=== PATIENT | male | born 1935 | race Hispanic/Latino ===

== ENCOUNTER 2019-01-05 01:42 | Inpatient (IN) | payer MEDICARE ==
[2019-01-05] MEDS ORDERED: ATROVENT IH ONE (02:02)
[2019-01-05] MEDS ORDERED: ZITHROMAX 500 MG in NACL 0.9% 250ML 250 ML IV ONE (02:02)
[2019-01-05] MEDS ORDERED: SOLU-Medrol IV ONE (02:02)
[2019-01-05] MEDS ORDERED: PROVENTIL IH ONE (02:02)
[2019-01-05] MEDS ORDERED: ROCEPHIN/NS 1 GM/50 ML 1 GM/50 ML BAG IV ONE (02:04)
--- NOTE | 2019-01-05 02:11 | Emergency Department Report ---
ED Shortness of Breath HPI - General Chief Complaint: Dyspnea/Respdistress Stated Complaint: DENNYS Time Seen by Provider: 01/05/19 01:52 Source: EMS Mode of arrival: Stretcher Limitations: No Limitations - History of Present Illness Initial Comments: Mr. Iraheta is an 83-year-old male with history of COPD dependent on 3 L of oxygen, pneumonia, heart valve replacement on Eliquis, hypertension, who presents with severe shortness of breath over the last 2 nights. He is unable to lay flat. No history of congestive heart failure. He has nonproductive cou gh. However he feels congested in his chest. Last hospitalization was 1-2 years ago. He's had lower back pain. he's had have mild left lower quadrant abdominal pain. When EMS arrived, his oxygen saturation on room air was 80%. He requires continuous 24-hour oxygen supplementation. PCP Dr. Fischer [facility] primary care Cryptologic Linguist Dr. Herman [facility] He is also followed by esthetician/spa coordinator in the [facility]. MD Complaint: shortness of breath -: Gradual, days(s) (2) Severity: severe Consistency: constant Improves With: oxygen Worsens With: lying flat Known History Of: COPD Associated Symptoms: cough, abdominal pain - Related Data Home Medications Medication Instructions Recorded Confirmed Last Taken Aspirin EC [Aspirin Enteric Coated 81 mg PO QDAY 02/28/14 03/01/14 02/28/14 09:00 TAB] Labetalol [Normodyne TAB] 300 mg PO BID 02/28/14 03/01/14 02/28/14 09:00 Tamsulosin [Flomax] 0.4 mg PO HS 02/28/14 03/01/14 02/28/14 22:44 0800 Valsartan [Diovan] 80 mg DAILY 02/28/14 03/01/14 02/28/14 09:00 Ergocalciferol (Vitamin D2) 2,000 unit PO QDAY 03/01/14 03/01/14 03/01/14 09:00 [Vitamin D2] Previous Rx's Medication Instructions Recorded Last Taken Type Levalbuterol Tartrate [Xopenex Hfa] 2 puff IH Q6HR PRN #1 hfa.aer.ad 03/03/14 Unknown Rx levoFLOXacin [Levaquin] 750 mg PO QDAY #7 tablet 03/03/14 Unknown Rx predniSONE [Deltasone] 10 mg PO QDAY #5 tab 03/03/14 Unknown Rx Allergies Allergy/AdvReac Type Severity Reaction Status Date / Time No Known Allergies Allergy Verified 01/05/19 03:03 ED Review of Systems ROS: Stated complaint: DENNYS Other details as noted in HPI Comment: All other systems reviewed and negative Constitutional: malaise. denies: fever Respiratory: cough, shortness of breath Cardiovascular: denies: chest pain ED Past Medical Hx - Past Medical History Previous Medical History?: Yes Hx Hypertension: Yes Hx COPD: Yes Hx HIV: No Additional medical history: GI bleed on coumadin - Surgical History Past Surgical History?: Yes Additional Surgical History: valve replacement - Social History Smoking Status: Former Smoker - Medications Home Medications: Home Medications Medication Instructions Recorded Confirmed Last Taken Type Aspirin EC [Aspirin Enteric Coated 81 mg PO QDAY 02/28/14 03/01/14 02/28/14 09:00 History TAB] Labetalol [Normodyne TAB] 300 mg PO BID 02/28/14 03/01/14 02/28/14 09:00 History Tamsulosin [Flomax] 0.4 mg PO HS 02/28/14 03/01/14 02/28/14 22:44 History 0800 Valsartan [Diovan] 80 mg DAILY 02/28/14 03/01/14 02/28/14 09:00 History Ergocalciferol (Vitamin D2) 2,000 unit PO QDAY 03/01/14 03/01/14 03/01/14 09:00 History [Vitamin D2] Levalbuterol Tartrate [Xopenex Hfa] 2 puff IH Q6HR PRN #1 hfa.aer.ad 03/03/14 Unknown Rx levoFLOXacin [Levaquin] 750 mg PO QDAY #7 tablet 03/03/14 Unknown Rx predniSONE [Deltasone] 10 mg PO QDAY #5 tab 03/03/14 Unknown Rx ED Physical Exam - General Limitations: No Limitations General appearance: alert, in distress, other (speaking full word sentences with much effort, accessory muscle use evident, wet cough) - Head Head exam: Present: atraumatic, normocephalic - Eye Eye exam: Present: normal appearance - ENT ENT exam: Present: mucous membranes moist - Neck Neck exam: Present: normal inspection - Respiratory Respiratory exam: Present: respiratory distress, rales, accessory muscle use, decreased breath sounds, prolonged expiratory - Cardiovascular Cardiovascular Exam: Present: regular rate, normal rhythm, normal heart sounds. Absent: systolic murmur, diastolic murmur, rubs, gallop - GI/Abdominal GI/Abdominal exam: Present: soft, normal bowel sounds, other (abdominal retractions). Absent: distended, tenderness, guarding, rebound - Rectal Rectal exam: Present: deferred - Extremities Exam Extremities exam: Absent: tenderness - Back Exam Back exam: Present: normal inspection - Neurological Exam Neurological exam: Present: alert, oriented X3 - Psychiatric Psychiatric exam: Present: normal affect, normal mood - Skin Skin exam: Present: warm, dry, intact, normal color. Absent: rash ED Course Vital Signs 01/05/19 01/05/19 01/05/19 02:08 02:11 02:18 Temperature 97.8 F 97.8 F Pulse Rate 96 H 96 H Respiratory 24 24 24 Rate Blood Pressure 176/60 Blood Pressure 176/60 [Right] O2 Sat by Pulse 92 94 92 Oximetry 01/05/19 03:00 Temperature Pulse Rate 90 Respiratory 24 Rate Blood Pressure Blood Pressure 156/60 [Right] O2 Sat by Pulse 95 Oximetry ED Medical Decision Making - Lab Data Result diagrams: 01/05/19 02:21 01/05/19 02:21 - Radiology Data Radiology results: image reviewed interpreted by me: Portable chest x-ray one view: Hyperinflated lungs lung scarring no infiltrate atelectasis - Medical Decision Making Mr. Iraheta presents with acute COPD exacerbation. Symptoms improving with nebulizer therapy, IV antibiotics, IV steroids. Admitted to telemetry in fair condition. Critical Care Time: Yes Critical care time in (mins) excluding proc time.: 40 Critical care attestation.: If time is entered above; I have spent that time in minutes in the direct care of this critically ill patient, excluding procedure time. 40 minutes of critical care time excluding procedures were used in the care of the patient. Patient required multiple assessments and interventions. I reviewed the electronic medical record. I spoke with consultants involved in the care of the patient. ED Disposition Clinical Impression: Acute exacerbation of chronic obstructive pulmonary disease (COPD) Disposition: OP ADMIT IP TO THIS HOSP Is pt being admited?: Yes Does the pt Need Aspirin: No Condition: Stable
[2019-01-05 02:39] LABS: Basophils % (Auto) 0.3 % (0.0-1.8); Eosinophils # (Auto) 0.1 K/mm3 (0.0-0.4); Eosinophils % (Auto) 0.9 % (0.0-4.3); Hematocrit 39.1 % (35.5-45.6); Lymphocytes # (Auto) 0.6 K/mm3 (1.2-5.4); Mean Corpuscular HGB Conc 33 % (32-34); Mean Corpuscular Volume 91 fl (84-94); Monocytes # (Auto) 0.6 K/mm3 (0.0-0.8); Monocytes % (Auto) 7.8 % (0.0-7.3); Platelet Count 150 K/mm3 (140-440); Red Blood Count 4.31 M/mm3 (3.65-5.03); Red Cell Distribution Width 14.9 % (13.2-15.2)
[2019-01-05 03:03] LABS: Alanine Aminotransferase 14 units/L (7-56); Albumin 3.7 g/dL (3.9-5); BUN/Creatinine Ratio 21; Blood Urea Nitrogen 15 mg/dL (9-20); Hemolysis Index 4
--- NOTE | 2019-01-05 05:16 | XRay Report ---
PROCEDURE: XR CHEST 1V AP TECHNIQUE: A portable upright view of the chest was submitted. HISTORY: Dyspnea COMPARISONS: None FINDINGS: There are sternotomy sutures. The heart is mildly enlarged. There is tortuosity of the thoracic cord. The lungs are not overtly congested. There are interstitial changes in the right lung. Whether this is on a chronic basis or secondary to acute infiltrate is uncertain. Pleural fluid is not seen. The l eft lung is clear. The skeletal structures reveal generalized osteoporosis. 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 Interstitial changes throughout the right lung as described. Whether this is on a chronic basis or se condary to acute infiltrates is uncertain.. This document is electronically signed by Jamal Lebron MD., January 05 2019 05:14:33 AM ET
--- NOTE | 2019-01-05 08:29 | History and Physical Report ---
History of Present Illness Date of examination: 01/05/19 Date of admission: 01/05/19 04:28 Chief complaint: SOB since last night - "I could not sleep" History of present illness: Mr. Iraheta is an 83-year-old male with history of COPD dependent on 3 L of oxygen, heart valve replacement, paroxysmal atrial fib on Eliquis, hypertension, who presents with severe shortness of breath from last night. He states that he is unable to lay flat and denies any leg swelling and any history of congestive heart failure. He has nonproductive cough. However he feels congested in his chest. Last hospitalization was 1-2 years ago. When EMS arrived, his oxygen saturation on room air was 80%. He follows up with Dr. Herman at [facility]. His CXR showed right sided chronic changes. He is getting admitted for further evaluation and management. he denies any chest pain. He states that he passed out while doing BM on and regained consciousness very quickly aft erwards and did not hit his head that time.+ Review of System: Constitutional: no fever, no chills, no weight loss Ears, eyes, nose, mouth and throat: no nasal congestion, no nasal discharge, no sinus pressure, no vision change, no red eye. Neck: No neck pain or rigidity. Cardiovascular: No chest pain, no orthopnea, no palpitations, no leg swelling Respiratory: + shortness of breath, + cough, no congestion, no wheezing Gastrointestinal: no abdominal pain, no nausea, no vomiting Genitourinary : no dysuria, no hematuria Musculoskeletal: no joint swelling or muscle ache Integumentary: no rash, no pruritis Neurological: no parathesias, no numbness, no tingling, one syncopal episode last week w/o any head trauma Endocrine: no cold or heat intolerance, no polyuria or polydipsia Hematologic/Lymphatic: no easy bruising, no easy bleeding, no gland swelling Allergic/Immunologic: no urticaria, no angioedema. Past History Past Medical History: atrial fib, COPD, hypertension, hyperlipidemia, other (VHD) Past Surgical History: Other (aortic valve replacement) Social history: , lives with family, smoking (now quit several years ago) Family history: hypertension Medications and Allergies Allergies Allergy/AdvReac Type Severity Reaction Status Date / Time No Known Allergies Allergy Verified 01/05/19 03:03 Home Medications Medication Instructions Recorded Confirmed Last Taken Type Aspirin EC [Aspirin Enteric Coated 81 mg PO QDAY 02/28/14 01/05/19 02/28/14 09:00 History TAB] Labetalol [Normodyne TAB] 300 mg PO BID 02/28/14 01/05/19 02/28/14 09:00 History Tamsulosin [Flomax] 0.4 mg PO HS 02/28/14 01/05/19 01/04/19 22:00 History Valsartan [Diovan] 80 mg DAILY 02/28/14 01/05/19 02/28/14 09:00 History Ergocalciferol (Vitamin D2) 2,000 unit PO QDAY 03/01/14 01/05/19 03/01/14 09:00 History [Vitamin D2] Levalbuterol Tartrate [Xopenex Hfa] 2 puff IH Q6HR PRN #1 hfa.aer.ad 03/03/14 01/05/19 01/04/19 Rx levoFLOXacin [Levaquin] 750 mg PO QDAY #7 tablet 03/03/14 01/05/19 Unknown Rx predniSONE [Deltasone] 10 mg PO QDAY #5 tab 03/03/14 01/05/19 Unknown Rx Apixaban [Eliquis] 2.5 mg PO BID 01/05/19 01/05/19 01/04/19 22:00 History Digoxin [Digox] 125 mcg PO DAILY 01/05/19 01/05/19 01/04/19 10:00 History Exam - Physical Exam Narrative exam: GENERAL: well-developed and well-nourished WM lying on bed appeared to be in mildo discomfort. HEENT: Normocephalic. Atraumatic. No conjunctival congestion or icterus. Patient has moist mucous membranes. NECK: Supple. Trachea midline. CHEST/LUNGS: diminiahed auscultated bilaterally, breathing nonlabored. No wheezes, + b/l rhonchi. HEART/CARDIOVASCULAR: Regular in rate and rhythm. S1 and S2 positive. ABDOMEN: Abdomen is soft, nontender. Patient has normal bowel sounds. SKIN: There is no rash. Warm and dry. NEURO: No focal motor deficit. Follows command. MUSCULOSKELETAL: No joint effusion or tenderness. EXTRIMITY: No edema, no cyanosis or clubbing. PSYCH: Cooperative. - Constitutional Vitals: Temp Pulse Resp BP Pulse Ox 97.8 F 97 H 19 146/54 91 01/05/19 06:00 01/05/19 06:00 01/05/19 06:00 01/05/19 06:00 01/05/19 06:00 Results - Labs CBC & Chem 7: 01/05/19 02:21 01/06/19 04:48 Labs: Abnormal lab results 01/05/19 01/05/19 Range/Units 02:21 02:21 Lymph % (Auto) 8.0 L (13.4-35.0) % Harvey % (Auto) 7.8 H (0.0-7.3) % Lymph # 0.6 L (1.2-5.4) K/mm3 Seg Neutrophils % 83.0 H (40.0-70.0) % Sodium 147 H (137-145) mmol/L Creatinine 0.7 L (0.8-1.5) mg/dL Glucose 121 H (75-100) mg/dL Albumin 3.7 L (3.9-5) g/dL Assessment and Plan Acute on chronic respiratory failure - due to COPD exacerbation Acute COPD exacerbation Paroxysmal atrial fib s/p heart valve replacement h/o thoracic AA HTN, stable s/p fall vs syncope, no h/o head trauma - - We'll admit the patient to telemetry - Will provide scheduled nebulizer breathing treatment and as needed - Place on empiric steroid and antibiotic - will get sputum culture, chest x-ray showed Interstitial changes throughout the right lung - possibly chronic, no fever, no elevated white count, will mon itor - Provide supplemental oxygen to keep oxygen saturation above 92% - Consider to consult pulmonary if no improvement in next 24 hours - We'll place on sliding scale of insulin as patient will be on empiric steroid - We will resume home medications, monitor BP - will do cardiology consult for h/o syncope and his cardiac history - Provide DVT prophylaxis with Eliquis. 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 Interstitial changes throughout the right lung as described. Whether this is on a chronic basis or secondary to acute infiltrates is uncertain..
[2019-01-05] MEDS ORDERED: LEVALBUTEROL TARTRATE IH PRN (11:14)
[2019-01-05] MEDS ORDERED: NON-FORMULARY (Valsartan [Diovan] 80 MG) PO SCH (11:15)
[2019-01-05] MEDS ORDERED: PROVENTIL IH PRN (11:35)
[2019-01-05] MEDS ORDERED: LEVAQUIN PO SCH (12:00)
[2019-01-05] MEDS ORDERED: SOLU-Medrol IV SCH (12:00)
[2019-01-05] MEDS: LANOXIN PO SCH (12:21)
[2019-01-05] MEDS ORDERED: NORMODYNE PO SCH (13:00)
[2019-01-05] MEDS ORDERED: DIOVAN PO SCH ×2 (14:00→15:00)
[2019-01-05] MEDS: DUONEB *Not for PRN Use IH SCH ×2 (14:40→20:10)
[2019-01-05] MEDS: NORMODYNE PO SCH (22:22)
[2019-01-05] MEDS: ELIQUIS PO SCH (22:22)
[2019-01-05] MEDS: FLOMAX PO SCH (22:27)
[2019-01-05] MEDS: DELTASONE PO SCH (22:27)
[2019-01-06] MEDS: DUONEB *Not for PRN Use IH SCH ×4 (02:10→20:49)
[2019-01-06 05:48] LABS: BUN/Creatinine Ratio 29; Blood Urea Nitrogen 20 mg/dL (9-20); Calcium 8.8 mg/dL (8.4-10.2); Hemolysis Index 9
[2019-01-06] MEDS ORDERED: NON-FORMULARY (Ergocalciferol (Vitamin D2) [Vitamin D2] 2,000 UNIT) PO SCH (10:00)
[2019-01-06] MEDS: LANOXIN PO SCH (11:07)
[2019-01-06] MEDS: DIOVAN PO SCH (11:08)
[2019-01-06] MEDS: ELIQUIS PO SCH ×2 (11:08→22:43)
[2019-01-06] MEDS: VITAMIN D3 PO SCH (11:09)
[2019-01-06] MEDS: HALFPRIN EC PO SCH ×2 (11:09→11:13)
[2019-01-06] MEDS: NORMODYNE PO SCH (11:09)
--- NOTE | 2019-01-06 11:17 | Consultation ---
History of Present Illness Consult date: 01/06/19 Consult reason: shortness of breath History of present illness: The patient is an 83-year-old man who presented to the hospital with shortness of breath. He has severe, oxygen dependent COPD, I will reported that he was climbing the stairs and his house without his oxygen on, which led to exacerbation of shortness of breath. There was no chest pain, no palpitations and he presented to the emergency room where he was evaluated and referred for admission. His symptoms have improved following treatment with bronchodilators and steroids. Cardiac consultation was requested for further cardiac assessment of shortness of breath. Patient has an extensive cardiac history, including a porcine aortic valve replacement. The indication for the aortic valve surgery is unclear at this time. Notably, there is no history of coronary artery disease and coronary bypass was not required at the time of the valve surgery. He also has a history of paroxysmal atrial flutter fibrillation, an ECG in 2013 showed atrial flutter with a 2-1 AV conduction. He is on chronic oral anticoagulation with Eliquis. On this presentation, there is no ECG that is evident on the chart, but his telemetry strips show sinus rhythm with intermittent sinus arrhythmia. Chest x- ray reveals normal size cardiac silhouette, but an ectatic and unfolded aorta; lungs show evidence of COPD but no interstitial edema or heart failure. Past History Past Medical History: atrial fib, COPD, hypertension Medications and Allergies Allergies Allergy/AdvReac Type Severity Reaction Status Date / Time No Known Allergies Allergy Verified 01/05/19 03:03 Home Medications Medication Instructions Recorded Confirmed Last Taken Type Aspirin EC [Aspirin Enteric Coated 81 mg PO QDAY 02/28/14 01/05/19 02/28/14 09:00 History TAB] Labetalol [Normodyne TAB] 300 mg PO BID 02/28/14 01/05/19 02/28/14 09:00 History Tamsulosin [Flomax] 0.4 mg PO HS 02/28/14 01/05/19 01/04/19 22:00 History Valsartan [Diovan] 80 mg DAILY 02/28/14 01/05/19 02/28/14 09:00 History Ergocalciferol (Vitamin D2) 2,000 unit PO QDAY 03/01/14 01/05/19 03/01/14 09:00 History [Vitamin D2] Levalbuterol Tartrate [Xopenex Hfa] 2 puff IH Q6HR PRN #1 hfa.aer.ad 03/03/14 01/05/19 01/04/19 Rx levoFLOXacin [Levaquin] 750 mg PO QDAY #7 tablet 03/03/14 01/05/19 Unknown Rx predniSONE [Deltasone] 10 mg PO QDAY #5 tab 03/03/14 01/05/19 Unknown Rx Apixaban [Eliquis] 2.5 mg PO BID 01/05/19 01/05/19 01/04/19 22:00 History Digoxin [Digox] 125 mcg PO DAILY 01/05/19 01/05/19 01/04/19 10:00 History Active Meds: Active Medications Albuterol (Proventil) 2.5 mg IH Q4HRT PRN PRN Reason: Shortness Of Breath Albuterol/Ipratropium (Duoneb *Not For Prn Use*) 1 ampul IH Q6HRT [facility] Last Admin: 01/06/19 10:48 Dose: 1 ampul Documented by: Apixaban (Eliquis) 2.5 mg PO BID [facility]; Protocol Last Admin: 01/06/19 11:08 Dose: 2.5 mg Documented by: Aspirin (Halfprin Ec) 81 mg PO QDAY [facility] Last Admin: 01/06/19 11:09 Dose: 81 mg Documented by: Cholecalciferol (Vitamin D3) 2,000 unit PO QDAY [facility] Last Admin: 01/06/19 11:09 Dose: 2,000 unit Documented by: Digoxin (Lanoxin) 0.125 mg PO DAILY [facility] Last Admin: 01/06/19 11:07 Dose: 0.125 mg Documented by: Labetalol HCl (Normodyne) 100 mg PO BID [facility] Last Admin: 01/06/19 11:09 Dose: 100 mg Documented by: Prednisone (Deltasone) 50 mg PO BID [facility] Last Admin: 01/05/19 22:27 Dose: 50 mg Documented by: Tamsulosin HCl (Flomax) 0.4 mg PO HS [facility] Last Admin: 01/05/19 22:27 Dose: 0.4 mg Documented by: Valsartan (Diovan) 80 mg PO DAILY [facility] Last Admin: 01/06/19 11:08 Dose: 80 mg Documented by: Review of Systems Cardiovascular: shortness of breath, no chest pain, no orthopnea, no palpitations, no rapid/irregular heart beat, no edema, no syncope, no lightheadedness Physical Examination Vital Signs Temp Pulse Resp BP Pulse Ox 97.8 F 96 H 24 176/60 92 01/05/19 02:08 01/05/19 02:08 01/05/19 02:08 01/05/19 02:08 01/05/19 02:08 General appearance: no acute distress HEENT: Positive: PERRL Neck: Positive: neck supple Cardiac: Positive: Reg Rate and Rhythm Lungs: Positive: Decreased Breath Sounds, Rhonchi Neuro: Positive: Grossly Intact Abdomen: Positive: Soft Male genitourinary: Positive: deferred Skin: Positive: Clear Extremities: Absent: edema Results 01/05/19 02:21 01/06/19 04:48 Comprehensive Metabolic Panel 01/06/19 Range/Units 04:48 Sodium 144 (137-145) mmol/L Potassium 4.5 (3.6-5.0) mmol/L Chloride 104.5 (98-107) mmol/L Carbon Dioxide 28 (22-30) mmol/L BUN 20 (9-20) mg/dL Creatinine 0.7 L (0.8-1.5) mg/dL Glucose 133 H (75-100) mg/dL Calcium 8.8 (8.4-10.2) mg/dL EKG interpretations - Telemetry EKG Rhythm: Sinus Rhythm Assessment and Plan - Patient Problems (1) Shortness of breath Current Visit: Yes Status: Acute Plan to address problem: Patient presents with shortness of breath, likely exacerbation of his COPD. In addition to optimal treatment of COPD, we will obtain his outpatient records to evaluate his recent cardiac workup. If indicated, an echocardiogram will be done for left ventricular function assessment, and for that assessment of his porcine aortic valve. Further cardiac ischemic evaluation will depend on clinical course and review of his outpatient records. (2) Paroxysmal atrial fibrillation Current Visit: Yes Status: Acute Plan to address problem: Patient has a history of paroxysmal atrial fibrillation flutter, but on the current presentation is in a stable sinus rhythm. The digoxin level is 1.2, we will reduce his digoxin doses, continue chronic oral anticoagulation.
--- NOTE | 2019-01-06 11:38 | Progress Note ---
Assessment and Plan Acute on chronic respiratory failure - due to COPD exacerbation Acute COPD exacerbation Paroxysmal atrial fib, SR on monitor s/p aortic heart valve replacement h/o thoracic AA HTN, stable s/p fall vs syncope, no h/o head trauma - We'll monitor the patient to telemetry - Will provide scheduled nebulizer breathing treatment and as needed - cont on empiric steroid and antibiotic - chest x-ray showed Interstitial changes throughout the right lung - possibly chronic, no fever, no elevated white count, will monitor - Provide supplemental oxygen to keep oxygen saturation above 92% - We will cont home medications, monitor BP - Cardiology consulted for h/o syncope and his cardiac history - recommended medical Mx - cardizem ordered by cardiology, will stop labetelol - Provide DVT prophylaxis with Eliquis. 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 Interstitial changes throughout the right lung as described. Whether this is on a chronic basis or secondary to acute infiltrates is uncertain.. Subjective Date of service: 01/06/19 Interval history: Patient seen and examined. Medical records and medication list reviewed. No acute event overnight noted by the RN. Patient denies any chest pain but still has difficulty breathing on ambulation. Patient is tolerating diet. Discussed plan of care at bedside with patient. Objective - Exam Narrative Exam: GENERAL: well-developed and well-nourished WM lying on bed appeared to be in mildo discomfort. HEENT: Normocephalic. Atraumatic. No conjunctival congestion or icterus. Patient has moist mucous membranes. NECK: Supple. Trachea midline. CHEST/LUNGS: diminished auscultated bilaterally, breathing nonlabored. No wheezes, + b/l rhonchi. HEART/CARDIOVASCULAR: Regular in rate and rhythm. S1 and S2 positive. ABDOMEN: Abdomen is soft, nontender. Patient has normal bowel sounds. SKIN: There is no rash. Warm and dry. NEURO: No focal motor deficit. Follows command. MUSCULOSKELETAL: No joint effusion or tenderness. EXTRIMITY: No edema, no cyanosis or clubbing. PSYCH: Cooperative. - Constitutional Vitals: Vital Signs - 12hr 01/06/19 01/06/19 01/06/19 02:37 07:32 07:45 Temperature 97.8 F 97.7 F Pulse Rate 86 79 Pulse Rate [ Anterior Bilateral Throughout] Respiratory 21 20 Rate Respiratory Rate [Anterior Bilateral Throughout] Blood Pressure 151/56 151/52 O2 Sat by Pulse 93 97 97 Oximetry 01/06/19 01/06/19 01/06/19 10:00 10:45 10:55 Temperature Pulse Rate Pulse Rate [ 79 78 Anterior Bilateral Throughout] Respiratory Rate Respiratory 18 18 Rate [Anterior Bilateral Throughout] Blood Pressure O2 Sat by Pulse 97 Oximetry 01/06/19 01/06/19 01/06/19 11:07 11:08 11:09 Temperature Pulse Rate 79 79 79 Pulse Rate [ Anterior Bilateral Throughout] Respiratory Rate Respiratory Rate [Anterior Bilateral Throughout] Blood Pressure 151/52 151/52 151/52 O2 Sat by Pulse Oximetry - Labs CBC & Chem 7: 01/05/19 02:21 01/06/19 04:48 Labs: Abnormal lab results 01/06/19 Range/Units 04:48 Creatinine 0.7 L (0.8-1.5) mg/dL Glucose 133 H (75-100) mg/dL
[2019-01-06] MEDS: CARDIZEM CD PO SCH (13:46)
[2019-01-06] MEDS: DELTASONE PO SCH ×2 (13:47→22:43)
[2019-01-06] MEDS: FLOMAX PO SCH (22:43)
[2019-01-07] MEDS: DUONEB *Not for PRN Use IH SCH ×2 (07:15→14:23)
[2019-01-07] MEDS: ELIQUIS PO SCH (09:34)
[2019-01-07] MEDS: DELTASONE PO SCH (09:34)
[2019-01-07] MEDS: CARDIZEM CD PO SCH (09:35)
[2019-01-07] MEDS: VITAMIN D3 PO SCH (09:35)
[2019-01-07] MEDS: DIOVAN PO SCH (09:36)
--- NOTE | 2019-01-07 10:07 | Progress Note ---
Assessment and Plan COPD exacerbation Hx of aortic valve replacement, porcine Hx of paroxysmal atrial flutter/fibrillation on chronic oral anticoagulation with Eliquis. digoxin level is 1.2, dose digoxin reduced to 0.125 q48hrs. Echocardiogram done 04/2018 reports a normal left ventricular ejection fraction 50-55%. Subjective Date of service: 01/07/19 Interval history: Patient is resting in bed comfortably. No distress noted. Objective Vital Signs Temp Pulse Pulse Pulse Resp Resp BP 01/07/19 09:36 62 144/52 01/07/19 09:35 62 144/52 01/07/19 08:30 22 01/07/19 07:47 97.6 F 58 L 22 144/52 01/07/19 07:25 68 20 01/07/19 07:15 73 18 01/07/19 03:04 98.4 F 89 22 152/43 01/06/19 22:00 65 61 20 01/06/19 21:00 83 20 01/06/19 20:52 01/06/19 20:51 83 20 01/06/19 19:29 61 01/06/19 19:07 97.8 F 20 135/49 01/06/19 15:26 97.3 F L 65 22 01/06/19 13:46 79 148/60 01/06/19 11:09 79 151/52 01/06/19 11:08 79 151/52 01/06/19 11:07 79 151/52 01/06/19 10:55 78 18 01/06/19 10:45 79 18 BP Pulse Ox 01/07/19 09:36 01/07/19 09:35 01/07/19 08:30 01/07/19 07:47 91 01/07/19 07:25 01/07/19 07:15 93 01/07/19 03:04 92 01/06/19 22:00 01/06/19 21:00 01/06/19 20:52 97 01/06/19 20:51 01/06/19 19:29 96 01/06/19 19:07 01/06/19 15:26 156/49 95 01/06/19 13:46 01/06/19 11:09 01/06/19 11:08 01/06/19 11:07 01/06/19 10:55 01/06/19 10:45 - Physical Examination General: No Apparent Distress HEENT: Positive: PERRL Neck: Positive: trachea midline Cardiac: Positive: Reg Rate and Rhythm Lungs: Positive: Decreased Breath Sounds Neuro: Positive: Grossly Intact Extremities: Absent: edema
--- NOTE | 2019-01-07 14:29 | Discharge Summary ---
Providers - Providers Date of Admission: 01/05/19 04:28 Date of discharge: 01/07/19 Attending physician: MARIA DOLORES LOMBARDO 01/05/19 14:08 Consult to Physician [CONS] Routine Comment: called answ. service/cristiano Consulting Provider: IDALIA HERMAN Physician Instructions: Reason For Exam: chest pain 01/05/19 17:30 Physical Therapy Evaluation and Treat [CONS] Routine Comment: Reason For Exam: weakness Primary care physician: JAGDISH OSBORN Hospitalization Reason for admission: SOB Condition: Stable Pertinent studies: CXR: Cardiomegaly with aneurysmal dilatation of the thoracic aorta. Interstitial changes throughout the right lung as described. Whether this is on a chronic basis or secondary to acute infiltrates is uncertain.. Hospital course: Mr. Iraheta is an 83-year-old male follows up with Dr. Herman at formerly [facility] with history of COPD dependent on 3 L of oxygen, heart valve replacement, paroxysmal atrial fib on Eliquis, hypertension, who presented to ER with severe shortness of breath. When EMS arrived, his oxygen saturation on room air was 80%. His CXR showed right sided chronic changes. He was admitted for further evaluation and management. He also stated that he passed out while doing BM on and regained consciousness very quickly afterwards and did not hit his head that time. He was monitored at telemetry, provided scheduled nebulizer breathing treatment and as needed, empiric steroid, antibiotic, supplemental oxygen to keep oxygen saturation above 92%. Placed on home medications, monitored BP. Cardiology consulted for h/o syncope and his cardiac history - recommended medical Mx, placed on cardizem, stopped labetelol, reduced the dose of digoxin, continued AC and DVT prophylaxis with Eliquis. His symptom improved and he was then discharged home in stable condition. Discharge diagnosis and management: Acute on chronic respiratory failure - due to COPD exacerbation Acute COPD exacerbation, resolved Paroxysmal atrial fib, SR on monitor s/p aortic heart valve replacement h/o thoracic AA HTN, stable s/p fall vs syncope, no h/o head trauma Physical exam GENERAL: well-developed and well-nourished WM lying on bed appeared to be in mildo discomfort. HEENT: Normocephalic. Atraumatic. No conjunctival congestion or icterus. Patient has moist mucous membranes. NECK: Supple. Trachea midline. CHEST/LUNGS: diminished auscultated bilaterally, breathing nonlabored. No wheezes, no rhonchi. HEART/CARDIOVASCULAR: Regular in rate and rhythm. S1 and S2 positive. ABDOMEN: Abdomen is soft, nontender. Patient has normal bowel sounds. SKIN: There is no rash. Warm and dry. NEURO: No focal motor deficit. Follows command. MUSCULOSKELETAL: No joint effusion or tenderness. EXTRIMITY: No edema, no cyanosis or clubbing. PSYCH: Cooperative. Disposition: DC-01 TO HOME OR SELFCARE Time spent for discharge: 34 minutes Core Measure Documentation - Palliative Care Palliative Care/ Comfort Measures: Not Applicable - Core Measures Any of the following diagnoses?: history only Exam - Physical Exam Narrative exam: GENERAL: well-developed and well-nourished WM lying on bed appeared to be in mildo discomfort. HEENT: Normocephalic. Atraumatic. No conjunctival congestion or icterus. Patient has moist mucous membranes. NECK: Supple. Trachea midline. CHEST/LUNGS: diminished auscultated bilaterally, breathing nonlabored. No wheezes, + b/l rhonchi. HEART/CARDIOVASCULAR: Regular in rate and rhythm. S1 and S2 positive. ABDOMEN: Abdomen is soft, nontender. Patient has normal bowel sounds. SKIN: There is no rash. Warm and dry. NEURO: No focal motor deficit. Follows command. MUSCULOSKELETAL: No joint effusion or tenderness. EXTRIMITY: No edema, no cyanosis or clubbing. PSYCH: Cooperative. - Constitutional Vitals: Temp Pulse Resp BP Pulse Ox 97.4 F L 66 20 127/47 94 01/07/19 13:58 01/07/19 14:23 01/07/19 14:23 01/07/19 14:05 01/07/19 14:05 Plan Activity: up only with assistance (walker and wheel chair), fall precautions (.) Diet: low fat, low salt Special Instructions: record daily BP diary Follow up with: JAGDISH OSBORN MD [Primary Care Provider] - 3-5 Days Prescriptions: dilTIAZem CD [Cardizem CD] 180 mg PO QDAY #30 capsule predniSONE [Deltasone] 50 mg PO QDAY #5 tablet levoFLOXacin [Levaquin TAB] 750 mg PO QDAY #5 tablet Ipratropium/Albuterol Sulfate [DUONEB *Not for PRN Use*] 1 ampul IH TIDRT PRN #30 ampul.neb PRN Reason: Shortness Of Breath
[2019-01-07 16:33] VITALS: BP 142/46
[2019-01-07] MEDS ORDERED: LANOXIN PO SCH (17:00)
== END 2019-01-07 17:27 | disposition home or self-care (01) | DRG 189 ==
LOC: ED 01:42 → 2B-ACE 04:28
PROVIDERS: ADMIT Internal Medicine; ATTEND Internal Medicine
DX: J96.20 Acute and chronic respiratory failure, unspecified whether with hypoxia or hypercapnia (principal); J44.1 Chronic obstructive pulmonary disease with (acute) exacerbation; I10 Essential (primary) hypertension; I48.0 Paroxysmal atrial fibrillation; Z99.81 Dependence on supplemental oxygen; Z79.82 Long term (current) use of aspirin; Z79.899 Other long term (current) drug therapy; Z87.891 Personal history of nicotine dependence; Z79.52 Long term (current) use of systemic steroids; Z79.01 Long term (current) use of anticoagulants; Z95.4 Presence of other heart-valve replacement; Z82.49 Family history of ischemic heart disease and other diseases of the circulatory system
CPT/HCPCS: 36415; 71045; 80048; 80053; 80162; 82140; 84484; 85025; 87040; 94640; 94760; 96365; 96375; G0378; J0456; J0696; J2920; J2930; J7050; J7512

== ENCOUNTER 2019-05-30 11:20 | Outpatient (CLI) | payer SELFPAY ==
--- NOTE | 2019-05-30 12:01 | XRay Report ---
CHEST 2 VIEWS INDICATION: Productive cough, wheezing, history of COPD. COMPARISON: FINDINGS: Support devices: None. 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 Borderline to mild cardiomegaly is evident. The thoracic aorta is ectatic but well defined. Lungs/pleura: The lungs are hyperinflated consistent with emphysema. Trace pleural effusions are iden tified bilaterally. No evidence for consolidation, mass or pneumothorax. Minor linear atelectasis is noted in the right midlung. Additional findings: None. IMPRESSION: COPD with superimposed mild CHF. No evidence for pneumonia. Signer Name: Denzel Barfield Jr, MD Signed: 05/30/2019 11:57 AM Workstation Name: [id number]
== END 2019-05-30 11:21 | disposition home or self-care (01) ==
LOC: SPVIMAG 11:20
PROVIDERS: ATTEND Internal Medicine
DX: J44.9 Chronic obstructive pulmonary disease, unspecified (principal); I11.0 Hypertensive heart disease with heart failure; I50.9 Heart failure, unspecified
CPT/HCPCS: 71046